=== PATIENT | female | born 1960 | race Caucasian/White ===

== ENCOUNTER 2019-01-08 06:29 | Inpatient (IN) | payer MEDICARE, MEDICAID ==
[2019-01-08] MEDS ORDERED: Acetaminophen 500 MG Tab PO ONE (06:45)
[2019-01-08] MEDS ORDERED: Scopolamine 1.5 MG Transdermal Patch TOP ONE (06:45)
[2019-01-08] MEDS ORDERED: Dextrose 5%-Lactated Ringers 1,000 ML IV SCH (07:00)
[2019-01-08] MEDS ORDERED: fentaNYL 250 MCG/5 ML SDV ONE (07:04)
[2019-01-08] MEDS ORDERED: Glycopyrrolate 0.2 MG/ML 5 ML MDV ONE (07:05)
[2019-01-08] MEDS ORDERED: Rocuronium 50 MG/5 ML Vial ONE (07:05)
[2019-01-08] MEDS ORDERED: Ondansetron 4 MG/2 ML SDV ONE (07:05)
[2019-01-08] MEDS ORDERED: Dexamethasone 4 MG/ML SDV ONE (07:05)
[2019-01-08] MEDS ORDERED: Succinylcholine 200 MG/10 ML MDV ONE (07:05)
[2019-01-08] MEDS ORDERED: Neostigmine Methylsulfate 1 MG/ML 5 ML Syringe ONE (07:05)
[2019-01-08] MEDS ORDERED: Propofol 200 MG/20 ML SDV ONE (07:05)
[2019-01-08] MEDS ORDERED: HYDROmorphone/Normal Saline 15 MG/30 ML PCA IV SCH (07:45)
[2019-01-08] MEDS ORDERED: Ketamine 50 MG in Sodium Chloride 0.9% 49.5 ML IV SCH (08:30)
[2019-01-08] MEDS ORDERED: Ketamine 500 MG/5 ML MDV IV SCH (08:30)
[2019-01-08] MEDS ORDERED: Bupivacaine 0.5%/EPINEPHrine 1:200,000 50 ML MDV ONE (09:46)
[2019-01-08] MEDS ORDERED: Meropenem 500 MG SDV ONE (09:46)
[2019-01-08] MEDS: cefOXitin 2 GM in Sodium Chloride 0.9% 50 ML IV ONE ×2 (10:03→13:42)
[2019-01-08] MEDS ORDERED: Lactated Ringers 1,000 ML ONE (10:17)
[2019-01-08] MEDS ORDERED: hydrOXYzine HCl 100 MG/2 ML SDV IM ONE (11:14)
[2019-01-08] MEDS ORDERED: fentaNYL 100 MCG/2 ML SDV IVPUSH ONE ×2 (11:18→11:44)
[2019-01-08] MEDS ORDERED: Insulin Lispro 100 Unit/ML 3 ML KwikPen SUBCUT ONE (11:30)
[2019-01-08] MEDS ORDERED: HYDROmorphone/Normal Saline 15 MG/30 ML PCA IV PRN (12:30)
[2019-01-08] MEDS ORDERED: Naloxone 0.4 MG/ML SDV IV PRN (12:41)
[2019-01-08] MEDS ORDERED: diphenhydrAMINE 50 MG/ML SDV IVPUSH PRN (12:46)
[2019-01-08] MEDS ORDERED: Labetalol 20 MG/4 ML Syringe IVPUSH PRN (12:46)
[2019-01-08] MEDS ORDERED: Ondansetron 4 MG/2 ML SDV IVPUSH PRN (12:46)
[2019-01-08] MEDS ORDERED: hydrOXYzine HCl 100 MG/2 ML SDV IM PRN (12:46)
[2019-01-08] MEDS ORDERED: Metoclopramide 10 MG/2 ML SDV IVPUSH PRN (12:46)
[2019-01-08] MEDS: Dextrose 5%-Lactated Ringers 1,000 ML IV SCH (13:39)
[2019-01-08] MEDS: Lactated Ringers 1,000 ML IV SCH ×2 (13:40→20:27)
[2019-01-08] MEDS: MVI, Adult with Vitamin K 10 ML, Thiamine 200 MG, Chromium/Copper/Mang/Selen/Zn 1 ML in... IV SCH ×4 (15:53)
[2019-01-08] MEDS: cefOXitin 2 GM in Sodium Chloride 0.9% 50 ML IV SCH ×2 (15:54→22:02)
[2019-01-08] MEDS: Pantoprazole 40 MG Vial IVPUSH SCH (15:59)
[2019-01-08] MEDS: Acetaminophen 325 MG Tab PO SCH ×2 (15:59→22:02)
[2019-01-08] MEDS: Insulin Lispro 100 Unit/ML 3 ML KwikPen SUBCUT PRN ×2 (16:47→21:59)
[2019-01-08] MEDS: metFORMIN 500 MG Tab PO SCH ×2 (16:48→17:00)
[2019-01-08] MEDS: HYDROmorphone 0.5 MG/0.5 ML Syringe IVPUSH PRN (16:49)
[2019-01-08] MEDS: Heparin Sodium 5,000 Units/ML Vial SUBCUT SCH (17:00)
[2019-01-08] MEDS: HYDROmorphone 1 MG/ML Syringe IV PRN (19:29)
[2019-01-09] MEDS: HYDROmorphone 1 MG/ML Syringe IV PRN (03:00)
[2019-01-09] MEDS ORDERED: Iopamidol 510 MG/ML 50 ML SDV PO SCH (03:45)
[2019-01-09] MEDS: Acetaminophen 325 MG Tab PO SCH ×4 (03:46→22:07)
[2019-01-09] MEDS: cefOXitin 2 GM in Sodium Chloride 0.9% 50 ML IV SCH ×4 (03:46→22:07)
[2019-01-09] MEDS ORDERED: Iopamidol 612 MG/ML 50 ML SDV IV STA (04:17)
[2019-01-09] MEDS: Dextrose 5%-Lactated Ringers 1,000 ML IV SCH (04:50)
[2019-01-09] MEDS: Heparin Sodium 5,000 Units/ML Vial SUBCUT SCH ×2 (05:27→17:05)
[2019-01-09] MEDS: HYDROmorphone 0.5 MG/0.5 ML Syringe IVPUSH PRN (07:51)
[2019-01-09] MEDS: Lactated Ringers 1,000 ML IV SCH (07:57)
[2019-01-09] MEDS: metFORMIN 500 MG Tab PO SCH ×2 (07:57→17:05)
[2019-01-09] MEDS: SCOPOLAMINE PATCH CHECK TOP SCH (07:59)
[2019-01-09] MEDS ORDERED: Ondansetron 4 MG Tab.DIS PO PRN (08:04)
[2019-01-09] MEDS ORDERED: Non-Formulary Medication 1 Each (Trazodone [Trazodone] 150 MG) PO PRN (08:07)
[2019-01-09] MEDS ORDERED: traZODone 50 MG Tab PO PRN (08:32)
[2019-01-09] MEDS ORDERED: VALACYCLOVIR HCL 500 MG PO SCH (09:00)
[2019-01-09] MEDS ORDERED: Non-Formulary Medication 1 Each (Spironolactone [Aldactone] 50 MG) PO SCH (09:00)
--- NOTE | 2019-01-09 09:18 | CRLCR ---
INDICATION: Evaluate gastric bypass. Small bowel obstruction. TECHNIQUE: Two images were acquired following oral administration of 50 cc of Isovue-300 contrast agent. Images were obtained at 1 and 15 minutes. FINDINGS: The initial image demonstrates contrast opacification within a normal size distal esophagus and there is contrast filling the gastric pouch with free flow across a gastroenterostomy with partial filling of a loop of jejunum. The 2nd image shows near complete evacuation of contrast from the gastric pouch with contrast extending through the efferent limb opacifying a loop of small bowel within the left abdomen. The bowel loop appears of normal size. IMPRESSION: Normal appearance of the gastric pouch and Heidy EN Y gastroenterostomy. No evidence of contrast extravasation which would indicate a leak and no evidence of obstruction. Dictated by Christian Gonzales MD @ 01/09/2019 9:16:38 AM Dictated by: Christian Gonzales MD @ 01/09/2019 09:16:44 (Electronically Signed)
[2019-01-09] MEDS: Spironolactone 25 MG Tab PO SCH (09:19)
[2019-01-09] MEDS: Aspirin 81 MG Tab.EC PO SCH (09:20)
[2019-01-09] MEDS: Allopurinol 100 MG Tab PO SCH (09:20)
--- NOTE | 2019-01-09 09:25 | PN ---
DATE OF SERVICE: 01/09/2019 SUBJECTIVE: Florinda is postoperative day #1. Her upper GI was normal. Bautista was discontinued earlier this morning. She has not voided yet. She is alert, orientated. Pain has been controlled and she has been up, ambulating. OBJECTIVE: GENERAL: Florinda Valderrama is a 58-year-old female, alert, orientated. VITAL SIGNS: TPR 97.7, 59, 16, blood pressure 127/60. HEENT: Negative. NECK: Supple. HEART: Regular rate and rhythm. LUNGS: Clear. ABDOMEN: Dressings dry and intact. Abdominal binder is on. EXTREMITIES: Without peripheral edema. ASSESSMENT: Exploratory laparotomy with small bowel revision and closure of internal hernia, revision of the jejunojejunostomy component of the Heidy-en-Y gastric bypass surgery, excision of peritoneal nodule, appendectomy, and placement of Interceed mesh. Date of surgery: 01/08/2019. Surgeon: Du Portillo MD. PLAN: 1. Step 3 gastric bypass diet. 2. Dilaudid 2 to 4 mg p.o. p.r.n. pain. 3. Zofran ODT 4 mg every 4 hours p.r.n. nausea. 4. Continue with IV of lactated Ringer's at 100 mL per hour. 5. Discontinue D5 LR. 6. Start home medications; Zyloprim 100 mg daily, aspirin 81 mg daily, trazodone 150 mg p.o. bedtime p.r.n., Aldactone/spironolactone 50 mg p.o. daily, valtrex 500 mg p.o. daily. 7. Blood sugar this morning was 173. We will hold metformin. 8. Good pulmonary toilet. 9. We will evaluate p.r.n. or in a.m. Liberty Lara PA-C /[id number]
[2019-01-09] MEDS: valACYclovir 1,000 MG Tab PO SCH (10:52)
[2019-01-09] MEDS: HYDROmorphone 2 MG Tab PO PRN ×3 (10:52→20:28)
[2019-01-09] MEDS: MVI, Adult with Vitamin K 10 ML, Thiamine 200 MG, Chromium/Copper/Mang/Selen/Zn 1 ML in... IV SCH ×4 (16:24)
[2019-01-09] MEDS: Pantoprazole 40 MG Vial IVPUSH SCH (16:29)
[2019-01-10] MEDS: HYDROmorphone 2 MG Tab PO PRN ×5 (01:46→18:26)
[2019-01-10] MEDS: cefOXitin 2 GM in Sodium Chloride 0.9% 50 ML IV SCH ×4 (04:23→21:23)
[2019-01-10] MEDS: Acetaminophen 325 MG Tab PO SCH ×4 (04:23→21:18)
[2019-01-10] MEDS: Heparin Sodium 5,000 Units/ML Vial SUBCUT SCH ×2 (06:05→18:21)
[2019-01-10] MEDS: SCOPOLAMINE PATCH CHECK TOP SCH (08:23)
[2019-01-10] MEDS ORDERED: Cyanocobalamin (Vitamin B12) 1,000 MCG/ML SDV IM ONE (09:00)
[2019-01-10] MEDS: Bisacodyl 5 MG Tab PO SCH ×2 (10:01→21:18)
[2019-01-10] MEDS: Aspirin 81 MG Tab.EC PO SCH (10:02)
[2019-01-10] MEDS: metFORMIN 500 MG Tab PO SCH ×2 (10:02→18:21)
[2019-01-10] MEDS: valACYclovir 1,000 MG Tab PO SCH (10:02)
[2019-01-10] MEDS: Spironolactone 25 MG Tab PO SCH (10:03)
[2019-01-10] MEDS: Allopurinol 100 MG Tab PO SCH (10:03)
[2019-01-10] MEDS: Lactated Ringers 1,000 ML IV SCH (10:12)
[2019-01-10] MEDS: MVI, Adult with Vitamin K 10 ML, Thiamine 200 MG, Chromium/Copper/Mang/Selen/Zn 1 ML in... IV SCH ×4 (16:09)
[2019-01-10] MEDS: Pantoprazole 40 MG Vial IVPUSH SCH (16:10)
[2019-01-11] MEDS: HYDROmorphone 2 MG Tab PO PRN ×4 (02:55→20:57)
[2019-01-11] MEDS: cefOXitin 2 GM in Sodium Chloride 0.9% 50 ML IV SCH ×3 (03:35→16:20)
[2019-01-11] MEDS: Acetaminophen 325 MG Tab PO SCH ×4 (03:35→21:05)
[2019-01-11] MEDS: Heparin Sodium 5,000 Units/ML Vial SUBCUT SCH ×2 (05:25→18:11)
[2019-01-11] MEDS: Lactated Ringers 1,000 ML IV SCH (06:26)
[2019-01-11] MEDS: Polyethylene Glycol 3350 Powder 119 GM Bottle PO SCH ×2 (09:19→21:47)
[2019-01-11] MEDS: Spironolactone 25 MG Tab PO SCH (09:19)
[2019-01-11] MEDS: metFORMIN 500 MG Tab PO SCH ×2 (09:19→16:18)
[2019-01-11] MEDS: Allopurinol 100 MG Tab PO SCH (09:20)
[2019-01-11] MEDS: valACYclovir 1,000 MG Tab PO SCH (09:20)
[2019-01-11] MEDS: Bisacodyl 5 MG Tab PO SCH ×2 (09:20→20:58)
[2019-01-11] MEDS: Aspirin 81 MG Tab.EC PO SCH (09:21)
[2019-01-11] MEDS: Pantoprazole 40 MG Vial IVPUSH SCH (16:17)
[2019-01-11] MEDS ORDERED: Polyethylene Glycol 3350 Powder 238 GM Bot ONE (21:12)
[2019-01-12] MEDS: HYDROmorphone 2 MG Tab PO PRN ×2 (01:51→07:20)
[2019-01-12] MEDS: Acetaminophen 325 MG Tab PO SCH ×2 (03:36→09:18)
[2019-01-12] MEDS: Heparin Sodium 5,000 Units/ML Vial SUBCUT SCH (05:53)
[2019-01-12] MEDS: metFORMIN 500 MG Tab PO SCH (07:20)
--- NOTE | 2019-01-12 07:43 | PN ---
DATE OF SERVICE: 01/10/2019 The patient has been afebrile with stable vital signs. She has been slow in terms of oral intake and activity. We will try to work on that today. Discontinue the and give her some bowel stimulation. Blood sugars have been running in the low 100's, so I think we can discontinue the Accu-Cheks and possibly go home tomorrow if her bowels are moving. Du Portillo MD /[id number]
--- NOTE | 2019-01-12 09:02 | PN ---
DATE OF SERVICE: 01/11/2019 The patient has been afebrile with stable vital signs. No bowel movement as of yet and will keep her in to try to get the GI tract functioning before discharge. We gave her some MiraLax today, have her shower, saline lock the IV, probably will get home tomorrow. Du Portillo MD /[id number]
[2019-01-12] MEDS: Aspirin 81 MG Tab.EC PO SCH (09:15)
[2019-01-12] MEDS: Bisacodyl 5 MG Tab PO SCH (09:15)
[2019-01-12] MEDS: Spironolactone 25 MG Tab PO SCH (09:16)
[2019-01-12] MEDS: Allopurinol 100 MG Tab PO SCH (09:18)
[2019-01-12] MEDS: valACYclovir 1,000 MG Tab PO SCH (09:18)
--- NOTE | 2019-01-12 09:38 | DISCH ---
ADMISSION DIAGNOSES: 1. Partial small bowel obstruction. 2. Diabetes, type 2. 3. Status post Heidy-en-Y gastric bypass surgery. 4. Unspecified surgical malabsorption. 5. B12 deficiency. 6. Attention deficit hyperactivity disorder. 7. Allergic rhinitis. 8. Anxiety disorder. 9. Borderline personality. 10.Diabetic neuropathy. 11.Elevated liver function tests. 12.Generalized osteoarthritis. 13.Human papillomavirus in female. 14.Insomnia. 15.Iron deficiency anemia. 16.Leukoplakia. 17.Low back pain. 18.Seasonal affective disorder. DISCHARGE DIAGNOSES: Exploratory laparotomy with small bowel revision and closure of internal hernia, revision of the jejunojejunostomy component of the Heidy-en-Y gastric bypass surgery, excision of peritoneal nodule, appendectomy, and placement of Interceed mesh. Date of surgery: 01/08/2019. Surgeon: Du Portillo MD. HISTORY: Florinda Valderrama is a pleasant 58-year-old female with postprandial abdominal pain with increasing symptoms. After preoperative evaluation and discussion of possible risks and possible complications, she wished to proceed with surgical procedure. HOSPITAL COURSE: Surgery was on 01/08/2019. She had no operative complications. On postoperative day #1, she was started on step 3 gastric bypass diet, oral pain medication, and her home medication. Blood sugars were monitored. On postoperative day #2, she was started on bowel stimulation. Activity was good. Vital signs were stable. On postoperative day #3, she was able to be discharged to home without any complications. PHYSICAL EXAMINATION: GENERAL: Florinda Valderrama is a 58-year-old female. VITAL SIGNS: Height is 5 feet 3.39 inches, weight is 186 pounds. TPR is 98, 81, 16, blood pressure 107/57. HEENT: Negative. NECK: Supple. HEART: Regular rate and rhythm. LUNGS: Clear. ABDOMEN: Aquacel dressing will be removed prior to discharge. Abdominal binder is on. EXTREMITIES: Without peripheral edema. DISPOSITION: Discharged to home. CONDITION: Stable and improving. FOLLOWUP APPOINTMENT: Liberty Lara PA-C, on 01/16/2019 at 9:30 a.m. NEW PRESCRIPTIONS: Dilaudid 2 mg one q.6 hours p.r.n. pain #28; Tylenol 650 mg q.6 hours p.r.n. pain. She is to resume home medications; zyloprim 100 mg oral daily, aspirin 81 mg oral daily, calcium citrate one b.i.d., vitamin D3 5000 International Units one b.i.d., B12 1000 mcg IM every 14 days, ferrous fumarate 324 mg oral 3 times a day, Mag-Oxide 400 mg oral daily, multivitamin one tablet oral daily, spironolactone 50 mg oral daily, vitamin B complex one daily, metformin 500 mg oral twice daily, trazodone 150 mg at bedtime, Valtrex 500 mg oral daily. DIET: Step 3 gastric bypass diet. Drink 8 to 10 glasses of water a day. Activity: No lifting over 10 pounds for 6 weeks. Walk at least 6 times daily inside your home. Driving: Do not drive for 1 week and while on pain medication. Shower/bathing: May shower. DISCHARGE INSTRUCTIONS: Notify provider if any fever, increased pain, nausea, or vomiting. Keep site clean and dry. Wear abdominal binder for 4 weeks and as tolerated. Use incentive spirometer 10 times every hour while awake. Check blood sugars twice a day and bring results to clinic appointment.
--- NOTE | 2019-01-26 08:50 | OR ---
DATE OF PROCEDURE: 01/08/2019 SURGEON: Du Portillo MD PREOPERATIVE DIAGNOSIS: Partial small bowel obstruction. POSTOPERATIVE DIAGNOSES: 1. Partial small bowel obstruction associated with focal small bowel volvulus and decompensation of jejunojejunostomy. 2. Peritoneal nodule on small bowel mesentery. 3. Multiple peritoneal nodules on appendix. 4. Extensive intraabdominal adhesions. OPERATIVE PROCEDURE: Exploratory laparotomy with: 1. Reduction of small bowel volvulus and closure of internal hernia (08733). 2. Revision of jejunojejunostomy component of Heidy-en-Y gastric bypass (18795). 3. Excision of peritoneal nodule on small bowel mesentery (01715). 4. Appendectomy for the purpose of removing adherent peritoneal nodules overlying appendix (44104). 5. Placement of Interceed mesh to limit recurrent adhesion between pelvic and abdominal wall and underlying viscera (45471). ANESTHESIA: General. SENIOR INSIGHT MANAGER [employer]ATIONAL: Liberty Lara PA-C INDICATIONS FOR PROCEDURE: This is a 58-year-old pleasant lady, who is status post Heidy-en- Y gastric bypass, presenting with a picture of small-bowel obstruction. Plan is to proceed with open laparotomy with lysis of adhesions, possible bowel resection, and other procedures as indicated. Potential risks including bleeding, infection, leaks from various GI tract closures, and problems with bowel obstruction over time recurring were all reviewed, and the patient wishes to proceed. DETAILS OF PROCEDURE: The patient was taken to the operating room, and after general endotracheal anesthesia was induced, a Bautista catheter was inserted and the abdomen prepped and draped. Upper midline incision from the umbilicus roughly 5 fingerbreadths up toward the xiphoid was made and carried down through the full-thickness of the abdominal wall. Upon entering the peritoneal cavity, the patient was noted to have quite extensive adhesions between the omentum, small bowel, and anterior abdominal wall. These were taken down with combination of blunt and cautery dissection. At that point, the small bowel was examined. The patient was noted to have focal volvulus with a portion of the jejunojejunostomy prolapsing underneath its own mesenteric defect. As this was reduced, it was noted that the jejunojejunostomy was strikingly dilated and quite decompensated in appearance. Given this, after reduction of the volvulus, it was decided to proceed with revision of that jejunojejunostomy. The 3 components leading into that anastomosis were then divided flush with the anastomosis with JAIME braden and underlying mesentery divided with the JAIME stapler as well. The GI tract continuity was then reestablished with initial anastomosis between what had been the distal-most biliopancreatic limb to the proximal-most common limb. This was a [id number] enteroenterostomy with internal firing of the Endo-JAIME 60 mm stapler, common opening was then closed transversely with same stapler, and angles of anastomosis were reinforced with 3-0 Vicryl stitch, and the mesenteric defect reinforced with a 2-0 silk stitch. The GI tract continuity was then reestablished with formation of the jejunojejunostomy between what had been the distal-most Heidy limb to the small bowel roughly 20 cm distal to the first anastomosis. This was accomplished with the same sequence of braden, and the angles anastomosed and mesenteric defect was likewise closed as per the first anastomosis. At this point, no further problems were noted apart from there were areas of 1 or 2 mm peritoneal nodules present. One of these was in the mesentery of the mid ileum. This was excised. The appendix was noted to have multiple similar small nodules of uncertain nature. Given this, appendectomy was accomplished with division of the appendix flush with the cecum with a JAIME henriquez load and the mesentery then divided with mesenteric load. The appendiceal staple line was then reinforced with [id number] stitch of 3-0 Vicryl seromuscular stitch. At that point, the abdomen was irrigated with antibiotic-containing saline solution. Drains will not be necessary. To limit recurrent adhesion formation between the pelvis and the abdominal wall, Interceed mesh was placed down toward the pelvis and then up against the incision, and then this incision was closed with #2 Vicryl stitch at the fascia level, 2 layers of 3-0 and 4-0 Vicryl stitch deep, and braden for the skin. Dressing was applied. The patient was taken to the recovery room in satisfactory condition. There were no evident complications. Physician event sales assistant, Liberty Lara, played an essential role in assisting in this case, helping to position the patient, retract structures as needed, as well as suturing and cutting sutures when indicated. Her presence improved patient safety and decreased the operative time. Du Portillo MD /[id number]
== END 2019-01-12 09:59 | disposition home or self-care (01) | DRG 327 ==
LOC: JP.SDS 06:29 → EDSTATUS 11:00 → JP.SDSSCHI 11:10 → JP.MS 11:11
PROVIDERS: ADMIT Surgery; ATTEND Surgery
PROC: 0WUF0JZ Supplement Abdominal Wall with Synthetic Substitute, Open Approach (ICD-10-PCS; principal; 2019-01-08)
PROC: 0D160ZA Bypass Stomach to Jejunum, Open Approach (ICD-10-PCS; principal; 2019-01-08)
PROC: 0DTJ0ZZ Resection of Appendix, Open Approach (ICD-10-PCS; principal; 2019-01-08)
PROC: 0DN80ZZ Release Small Intestine, Open Approach (ICD-10-PCS; principal; 2019-01-08)
PROC: 0DNW0ZZ Release Peritoneum, Open Approach (ICD-10-PCS; principal; 2019-01-08)
PROC: 0DNU0ZZ Release Omentum, Open Approach (ICD-10-PCS; principal; 2019-01-08)
DX: K56.600 Partial intestinal obstruction, unspecified as to cause (principal); K91.2 Postsurgical malabsorption, not elsewhere classified; F33.8 Other recurrent depressive disorders; K46.9 Unspecified abdominal hernia without obstruction or gangrene; I10 Essential (primary) hypertension; K66.8 Other specified disorders of peritoneum; D50.9 Iron deficiency anemia, unspecified; B97.7 Papillomavirus as the cause of diseases classified elsewhere; E53.8 Deficiency of other specified B group vitamins; E11.40 Type 2 diabetes mellitus with diabetic neuropathy, unspecified; M15.9 Polyosteoarthritis, unspecified; F41.9 Anxiety disorder, unspecified; F60.3 Borderline personality disorder; M54.12 Radiculopathy, cervical region; J30.9 Allergic rhinitis, unspecified; F90.0 Attention-deficit hyperactivity disorder, predominantly inattentive type; R79.89 Other specified abnormal findings of blood chemistry; G47.00 Insomnia, unspecified; K13.21 Leukoplakia of oral mucosa, including tongue; M54.5 Low back pain; G47.33 Obstructive sleep apnea (adult) (pediatric); F39 Unspecified mood [affective] disorder; K56.2 Volvulus; K66.9 Disorder of peritoneum, unspecified; K56.51 Intestinal adhesions [bands], with partial obstruction; Z98.0 Intestinal bypass and anastomosis status; Z87.891 Personal history of nicotine dependence; Z98.84 Bariatric surgery status
CPT/HCPCS: 74240; 82962; 88304; 88305; 88307; 94762; A9270-GY; C9113; J0171; J0330; J0694; J1100; J1170; J1644; J1815; J2185; J2405; J2704; J2710; J2795; J3010; J3410; J3411; J3420; J3490; J7042; J7050; J7120; Q9967

== ENCOUNTER 2020-01-18 10:38 | Inpatient (IN) | payer MEDICARE, MEDICAID ==
[~2020-01-18 10:38] MED LIST: Bupivacaine 0.5%/EPINEPHrine 1:200,000 50 ML MDV ONE; Dexamethasone 4 MG/ML SDV ONE; Glycopyrrolate 0.2 MG/ML 5 ML MDV ONE; Meropenem 500 MG SDV ONE; Neostigmine Methylsulfate 1 MG/ML 5 ML Syringe ONE; Ondansetron 4 MG/2 ML SDV ONE; Propofol 200 MG/20 ML SDV ONE; Rocuronium 50 MG/5 ML Vial ONE; fentaNYL 250 MCG/5 ML SDV ONE
[2020-01-18] MEDS ORDERED: Acetaminophen 500 MG Tab PO ONE (11:30)
[2020-01-18] MEDS ORDERED: Celecoxib 200 MG Cap PO ONE ×2 (11:30)
[2020-01-18] MEDS ORDERED: Dextrose 5%-Lactated Ringers 1,000 ML IV SCH ×2 (12:00→15:30)
[2020-01-18] MEDS ORDERED: fentaNYL 250 MCG/5 ML SDV ONE (12:13)
[2020-01-18] MEDS: ceFAZolin 2 GM in Premix Bag 1 BAG IV ONE ×2 (12:19→14:56)
[2020-01-18] MEDS ORDERED: Ropivacaine 38 ML, dexAMETHasone 8 MG, EPINEPHrine 0.4 MG, Sodium Chloride 0.9% 39.6 ML NERVRT SCH ×4 (12:30)
[2020-01-18] MEDS ORDERED: Ketamine 50 MG in Sodium Chloride 0.9% 49.5 ML IV SCH (12:45)
[2020-01-18] MEDS ORDERED: Ketamine 500 MG/5 ML MDV IV SCH (12:45)
[2020-01-18] MEDS ORDERED: Bupivacaine 0.5% 50 ML MDV ONE (12:47)
[2020-01-18] MEDS ORDERED: Lidocaine 1% with EPINEPHrine 1:100,000 50 ML MDV ONE (12:47)
[2020-01-18] MEDS ORDERED: Ketorolac 60 MG/2 ML SDV ONE (13:04)
[2020-01-18] MEDS ORDERED: Insulin Lispro 100 Unit/ML 3 ML KwikPen SUBCUT ONE (13:46)
[2020-01-18] MEDS ORDERED: Glucagon,Human Recombinant 1 MG Vial IM PRN (15:21)
[2020-01-18] MEDS ORDERED: Glucose Gel 15 GM in 37.5 GM Tube PO PRN (15:21)
[2020-01-18] MEDS ORDERED: 50% Dextrose in Water 50 ML Syringe IVPUSH PRN (15:21)
[2020-01-18] MEDS ORDERED: hydrOXYzine HCL 100 MG/2 ML SDV IM PRN (15:27)
[2020-01-18] MEDS ORDERED: Ondansetron 4 MG/2 ML SDV IVPUSH PRN (15:28)
[2020-01-18] MEDS ORDERED: HYDROmorphone 1 MG/ML Syringe IV PRN (16:00)
[2020-01-18] MEDS: HYDROmorphone 0.5 MG/0.5 ML Syringe IVPUSH PRN ×3 (16:10→23:47)
[2020-01-18] MEDS: Insulin Lispro 100 Unit/ML 3 ML KwikPen SUBCUT PRN ×2 (17:15→21:25)
[2020-01-18] MEDS: metFORMIN 500 MG Tab PO SCH (17:16)
[2020-01-18] MEDS: Ziprasidone HCl 20 MG Cap PO SCH (17:19)
[2020-01-18] MEDS: ceFAZolin 2 GM in Premix Bag 1 BAG IV SCH (20:04)
[2020-01-18] MEDS: traZODone 50 MG Tab PO SCH (20:09)
[2020-01-19] MEDS: Lactated Ringers 1,000 ML IV SCH ×3 (00:07→20:53)
[2020-01-19] MEDS: ceFAZolin 2 GM in Premix Bag 1 BAG IV SCH ×2 (04:40→11:56)
[2020-01-19] MEDS: HYDROmorphone 0.5 MG/0.5 ML Syringe IVPUSH PRN ×2 (04:45→05:55)
[2020-01-19] MEDS: Cyclobenzaprine 10 MG Tab PO PRN ×3 (05:55→22:44)
[2020-01-19] MEDS ORDERED: Ondansetron 4 MG Tab.DIS PO PRN (07:09)
[2020-01-19] MEDS: HYDROmorphone 2 MG Tab PO PRN ×4 (07:49→20:53)
[2020-01-19] MEDS: Amphetamine/Dextroamphetamine Salts 10 MG Tab PO SCH ×2 (07:49→12:40)
[2020-01-19] MEDS: Ziprasidone HCl 20 MG Cap PO SCH ×2 (07:53→17:02)
[2020-01-19] MEDS: metFORMIN 500 MG Tab PO SCH ×2 (07:54→17:01)
[2020-01-19] MEDS: Bisacodyl 5 MG Tab PO SCH ×2 (10:22→20:53)
[2020-01-19] MEDS: Spironolactone 25 MG Tab PO SCH (10:23)
[2020-01-19] MEDS: Docusate Sodium 100 MG Cap PO SCH ×2 (10:23→20:53)
[2020-01-19] MEDS: valACYclovir 1,000 MG Tab PO SCH (10:23)
[2020-01-19] MEDS: buPROPion 150 MG Tab.ER PO SCH (10:24)
[2020-01-19] MEDS: Aspirin 81 MG Tab.EC PO SCH (10:25)
[2020-01-19] MEDS: Allopurinol 100 MG Tab PO SCH (10:25)
[2020-01-19] MEDS: Insulin Lispro 100 Unit/ML 3 ML KwikPen SUBCUT PRN ×2 (10:29→21:32)
--- NOTE | 2020-01-19 11:18 | PN ---
DATE OF SERVICE: 01/19/2020 SUBJECTIVE: Florinda is postoperative day #1. She states her pain is controlled until she moves. Dr. Portillo explained to her that the surgery will be more painful than the surgery she has had in the past. She has been up, ambulating a couple of times. Vital signs stable. She has been afebrile. Oral intake 926. Urine output was 990. REVIEW OF SYSTEMS: Remainder of review of systems negative for any pertinent positives and negatives. OBJECTIVE: GENERAL: Florinda Valderrama is a pleasant 59-year-old female. She is alert and orientated. VITAL SIGNS: TPR at 0736, 96.6; 58; 16; blood pressure 106/55. HEENT: Negative. NECK: Supple. HEART: Regular rate and rhythm. LUNGS: Clear. ABDOMEN: Dressings dry and intact. Abdominal binder is on. EXTREMITIES: Without peripheral edema. ASSESSMENT: Exploratory laparotomy with: 1. Repair of incarcerated incisional hernia with mesh. 2. Excision of nodular lesion. 3. Reduction of small bowel volvulus and closure of internal hernia. 4. Placement of Vicryl mesh. POSTOPERATIVE DIAGNOSES: 1. Incarcerated incisional hernia. 2. Nodular peritoneal implant on appendix epiploica, transverse colon, 6 cm. 3. Focal small bowel volvulus at the jejunojejunostomy. 4. Extensive intraabdominal adhesions. 5. Date of surgery: 01/18/2020. Surgeon: Du Portillo MD. PLAN: 1. Step 4 gastric bypass diet. 2. Dietary consult. 3. Dilaudid 2 mg 1 to 2 every 4 hours p.r.n. pain. 4. Decrease IV to 100 mL per hour. 5. Colace 100 mg p.o. b.i.d. 6. Dulcolax 10 mg p.o. tablets 1 b.i.d. scheduled. Discontinue when the patient has a bowel movement. 7. May shower. 8. Zofran ODT 4 mg every 4 hours p.r.n. nausea, vomiting. 9. Discontinue D5 LR at 50 mL per hour. 10.Discontinue continuous pulse ox. 11.Continue use of incentive spirometer as directed. 12.We will evaluate p.r.n. or in a.m. Liberty Lara PA-C /[id number]
[2020-01-19] MEDS: traZODone 50 MG Tab PO SCH (20:56)
[2020-01-20] MEDS: HYDROmorphone 2 MG Tab PO PRN ×2 (00:47→00:53)
[2020-01-20] MEDS: Lactated Ringers 1,000 ML IV SCH ×2 (06:00→16:00)
[2020-01-20] MEDS ORDERED: Cyclobenzaprine 10 MG Tab PO PRN (07:00)
[2020-01-20] MEDS ORDERED: hydrOXYzine HCl 25 MG Tab PO PRN (07:00)
[2020-01-20] MEDS: Acetaminophen/oxyCODONE 325-5 MG Tab PO PRN ×4 (07:51→22:50)
[2020-01-20] MEDS: Amphetamine/Dextroamphetamine Salts 10 MG Tab PO SCH ×2 (08:25→13:28)
[2020-01-20] MEDS: metFORMIN 500 MG Tab PO SCH ×2 (08:26→17:38)
[2020-01-20] MEDS: Celecoxib 200 MG Cap PO SCH ×2 (08:30→21:43)
[2020-01-20] MEDS: Spironolactone 25 MG Tab PO SCH (08:30)
[2020-01-20] MEDS: Ziprasidone HCl 20 MG Cap PO SCH ×2 (08:30→17:38)
[2020-01-20] MEDS: valACYclovir 1,000 MG Tab PO SCH (08:31)
[2020-01-20] MEDS: Bisacodyl 5 MG Tab PO SCH ×2 (08:31→21:00)
[2020-01-20] MEDS: Docusate Sodium 100 MG Cap PO SCH ×2 (08:31→21:44)
[2020-01-20] MEDS: Aspirin 81 MG Tab.EC PO SCH (08:31)
[2020-01-20] MEDS: Allopurinol 100 MG Tab PO SCH (08:31)
[2020-01-20] MEDS: buPROPion 150 MG Tab.ER PO SCH (08:32)
--- NOTE | 2020-01-20 09:29 | PN ---
DATE OF SERVICE: 01/20/2020 SUBJECTIVE: Florinda reports her pain is just not controlled. She is taking Dilaudid 2 mg every 4 hours. If she takes 4 mg, she states she cannot stay awake. Vital signs have been stable. She has been afebrile, up ambulating. Oral intake is 1520, urine output is 2375. She is on bowel stimulation and is not passing any flatus. Blood sugars, the last 3, have been 177, 128, and 164. REVIEW OF SYSTEMS: Remainder of review of systems negative for any pertinent positives and negatives. OBJECTIVE: GENERAL: Florinda Valderrama is a pleasant 59-year-old female. VITAL SIGNS: TPR at 0348, 96.3, 67, 16, blood pressure 139/59. HEENT: Negative. NECK: Supple. HEART: Regular rate and rhythm. LUNGS: Clear. ABDOMEN: Dressings dry and intact. Abdominal binder is on. EXTREMITIES: Without peripheral edema. ASSESSMENT: Exploratory laparotomy with: 1. Repair of incarcerated incisional hernia with mesh. 2. Excision of nodular lesion. 3. Reduction of small bowel volvulus and closure of internal hernia. 4. Placement of Vicryl mesh. POSTOPERATIVE DIAGNOSES: 1. Incarcerated incisional hernia. 2. Nodular peritoneal implant on appendix epiploica, transverse colon 6 cm. 3. Focal small bowel volvulus of the jejunojejunostomy. 4. Extensive intraabdominal adhesions. Date of surgery: 01/18/2020. Surgeon: Du Portillo MD. PLAN: 1. Discontinue Dilaudid. 2. Percocet 5/325 mg, 1 to 2 every 4 hours p.r.n. pain. 3. Celebrex 200 mg p.o. b.i.d. 4. Atarax 25 mg p.o. q.4 hours p.r.n. pain. 5. Flexeril 10 mg increase to every 6 hours p.r.n. muscle spasms. 6. Continue use of incentive spirometer. 7. We will evaluate in a.m., and [facility] have been contacted. Liberty Lara PA-C /[id number]
[2020-01-20] MEDS: traZODone 50 MG Tab PO SCH (21:45)
[2020-01-21] MEDS: Lactated Ringers 1,000 ML IV SCH (02:03)
[2020-01-21] MEDS: Acetaminophen/oxyCODONE 325-5 MG Tab PO PRN ×2 (05:45→08:10)
[2020-01-21] MEDS: Ziprasidone HCl 20 MG Cap PO SCH (09:12)
[2020-01-21] MEDS: Allopurinol 100 MG Tab PO SCH (09:12)
[2020-01-21] MEDS: Aspirin 81 MG Tab.EC PO SCH (09:12)
[2020-01-21] MEDS: Bisacodyl 5 MG Tab PO SCH (09:12)
[2020-01-21] MEDS: Amphetamine/Dextroamphetamine Salts 10 MG Tab PO SCH (09:12)
[2020-01-21] MEDS: valACYclovir 1,000 MG Tab PO SCH (09:12)
[2020-01-21] MEDS: Celecoxib 200 MG Cap PO SCH (09:13)
[2020-01-21] MEDS: metFORMIN 500 MG Tab PO SCH (09:13)
[2020-01-21] MEDS: Spironolactone 25 MG Tab PO SCH (09:13)
[2020-01-21] MEDS: buPROPion 150 MG Tab.ER PO SCH (09:14)
[2020-01-21] MEDS: Docusate Sodium 100 MG Cap PO SCH (09:14)
--- NOTE | 2020-01-21 13:28 | DISCH ---
ADMISSION DIAGNOSES: 1. Incisional hernia. 2. Unspecified surgical malabsorption. 3. SP Heidy-en-Y gastric bypass surgery. 4. B12 deficiency. 5. Vitamin B complex deficiency. 6. Vitamin D deficiency. 7. Type 2 diabetes without complication without long-term current use of insulin. 8. Depression with anxiety. 9. Exploratory laparotomy with: a. Repair of incarcerated incisional hernia with mesh. b. Excision of a nodular lesion. c. Reduction of small bowel volvulus and closure of internal hernia. d. Placement of Vicryl mesh. POSTOPERATIVE DIAGNOSES: 1. Incarcerated incisional hernia. 2. Nodule peritoneal implant on appendix epiploica transverse colon, 6 cm. 3. Focal small bowel volvulus of the jejunojejunostomy. 4. Extensive intraabdominal adhesions. 5. Date of procedure: 01/18/2020. Surgeon: Du Portillo MD. HISTORY: Florinda Valderrama is a 59-year-old female with an incarcerated incisional hernia. After preoperative evaluation and discussion of possible risks and possible complications, she wished to proceed with surgical procedure. HOSPITAL COURSE: Florinda had her surgery on 01/18/2020. She had no operative complications. On postoperative day #1, she was started on step 4 gastric bypass diet, Dilaudid 2 mg 1 to 2 every 4 hours, and bowel stimulation. IV was decreased to 50 mL per hour. On postoperative day #2, her pain was not controlled with the Dilaudid, so she was started on Percocet 5/325 1 to 2 every 4 hours, Celebrex 200 mg p.o. b.i.d., Atarax every 4 hours for additional pain. On postop day #3, she was able to be discharged to home. Afebrile. Vital signs stable. Oral intake 1100. Urine output was 3100. She has not had a bowel movement yet, but is passing flatus. Her last blood sugar was 143. DISPOSITION: Discharged to home with home health care with no complications and in stable condition. OBJECTIVE: GENERAL: Florinda is a 59-year-old female. VITAL SIGNS: Height is 5 feet 3.39 inches, weight is 170 pounds, BMI 29.7. TPR at 0722, 95.8; 90; 16; blood pressure 120/77. HEENT: Negative. NECK: Supple. HEART: Regular rate and rhythm. LUNGS: Clear. ABDOMEN: Aquacel dressings on. Abdominal binder is on with rolled up Kerlix for pressure dressing over hernia site. EXTREMITIES: Without peripheral edema. DISPOSITION: Discharged to home. CONDITION: Stable and improving. FOLLOWUP: Appointment with Liberty Lara PA-C, at [facility] on 01/29/2020 at 9:45 a.m. HOME MEDICATIONS: 1. Celebrex 200 mg oral b.i.d., #28. 2. Colace 100 mg oral b.i.d., #60. 3. Dulcolax 10 mg oral twice daily, #30, to stop when you have a BM. 4. Flexeril 10 mg oral q.6 hours p.r.n. muscle spasms, #30. 5. Milk of magnesia 30 mL, take 1 daily, 2 were sent home with the patient to take p.r.n. constipation. 6. MiraLAX 119 g, take on 01/23/2020, if no bowel movement. 7. Percocet 5/325 mg 1 tablet every 4 hours p.r.n. pain #42. 8. Zofran ODT 4 mg every 4 hours p.r.n. nausea. 9. Resume home medication of: a. Adderall 10 mg oral twice daily. b. Aspirin 81 mg oral daily. c. Vitamin B12 1000 mcg injection every 14 days. d. Magnesium oxide 400 mg daily. e. Multivitamin 1 tablet chewable twice daily. f. Spironolactone 50 mg oral daily. g. Vitamin B complex 1 daily. h. Vitamin E 400 International Units oral daily. i. Zyloprim 100 mg oral daily. j. Bupropion 150 mg oral daily. k. Metformin 500 mg oral twice daily. l. Trazodone 200 mg oral at bedtime. m. Valtrex 500 mg oral daily as directed p.r.n. outbreak of genital herpes. n. Ziprasidone 60 mg oral twice daily with meals. DIET: Step 4 gastric bypass diet. Drink 8 to 10 glasses of water a day. ACTIVITY: No lifting over 10 pounds for 6 weeks. Other activity: Walk at least 6 times daily inside your home. Driving: Do not drive for 1 week or while on pain medication. Shower/bathing: May shower. No tub bathing or swimming for 6 weeks. DISCHARGE INSTRUCTIONS: Notify provider if any fever, pain, swelling, redness, nausea, or vomiting. Keep site clean and dry. Remove Aquacel dressing in 3 days, 01/24/2020. Wear abdominal binder with pressure dressing over hernia site for 6 days. SPECIAL INSTRUCTION: Use incentive spirometer 10 times every hour while awake for 1 week.
--- NOTE | 2020-01-25 11:26 | OR ---
DATE OF PROCEDURE: 01/18/2020 SURGEON: Du Portillo MD PREOPERATIVE DIAGNOSIS: Incisional hernia. POSTOPERATIVE DIAGNOSES: 1. Incarcerated incisional hernia. 2. Nodular peritoneal implant on appendix epiploica in the mid transverse colon (6 cm). 3. Focal small bowel volvulus at jejunojejunostomy mesenteric defect. 4. Extensive intraabdominal adhesions. OPERATIVE PROCEDURES: Exploratory laparotomy with: 1. Repair of incarcerated incisional hernia with mesh (06595, 46756). 2. Excision of peritoneal nodular lesion, appendix epiploica, transverse colon (65151). 3. Reduction of small bowel volvulus, closure of internal hernia (12927). 4. Placement of Vicryl mesh to limit adhesion formation between pelvic and abdominal wall and underlying viscera (18743). ANESTHESIA: General. SIGNAL INTELLIGENCE ANALYST: Liberty Lara PA-C INDICATIONS FOR PROCEDURE: This is a 59-year-old female presenting with an area of herniation in the epigastric area. She is status post previous mesh repair of a periumbilical hernia. Plan is to proceed with open repair of this hernia with mesh. Potential risks of the procedure including bleeding, infection, injury to underlying viscera, problems with mesh becoming infected or hernia recurring were all gone over, and the patient wishes to proceed. DETAILS OF PROCEDURE: The patient was taken to the operating room, and after general endotracheal anesthesia was induced, a Bautista catheter was inserted, and the abdomen prepped and draped. An epigastric incision was then made from the umbilicus up roughly a handsbreadth toward the xiphoid, carried down through the skin and subcutaneous tissue and into the peritoneal cavity. The lowermost point of this incision had an overlap of a previous mesh. The peritoneal cavity was then entered above that area. Some adhesions into the hernia sac, i.e. areas of incarceration involving transverse colon and omentum, were present. These were taken down with a combination of blunt and cautery dissection. During the course of dissection, a nodular lesion on appendix epiploica of the transverse colon was noted. The complex of this nodular lesion on the epiploic appendix was 6 cm in maximal dimension. This was excised using electrocautery. These adhesions were taken down sufficiently to allow mesh placement. Examination of the small bowel was undertaken with the patient having been status post a previous Heidy-en-Y gastric bypass and previous bowel obstructions. The patient did have a focal volvulus involving a loop of small bowel underneath the defect involving the jejunojejunostomy. This was reduced and the mesenteric defect then closed with a 2-0 silk stitch. At this point, no further problems were noted. Ventrio ST mesh measuring 19.6 x 24.6 cm was selected. The patient's broadest defect was in the transverse orientation, so this mesh was eventually placed with long access of the oval in a transverse orientation at roughly 5 cm intervals around its circumference. 2-0 Vicryl sutures were placed on the polypropylene side of the mesh and then stab wounds were placed where those sutures will be pulled up in the abdominal wall, fixing the mesh gently in position well away from the fascial defect. Once these were in place, the mesh was soaked in an antibiotic solution and the left side of the sutures were then pulled up and the mesh pulled up into the abdominal cavity to that extent. Underlying this, then a 12-inch segment of Vicryl mesh was then placed underneath what would be a new area of mesh location, underneath the old mesh in the periumbilical area, and from there down toward the pelvis to limit recurrent adhesion formation between those surfaces and the underlying viscera. The remaining sutures were then pulled up and then tied. The mesh was further secured circumferentially with tacking titanium screws placed on the underlying shelf of the mesh circumferentially. At this point, no further problems were noted. The midline fascia was then approximated with #2 Vicryl stitch. The subcutaneous tissue was approximated with some 3-0 and 4-0 Vicryl stitch deep and braden for the skin. Prior to closure, bilateral transversus abdominis plane blocks were placed and the fascial closure site was then anesthetized with 0.5% Marcaine mixed with lidocaine. The patient was taken to the recovery room in satisfactory condition. There were no evident complications. Physician real estate executive assistant, Liberty Lara, played an essential role in assisting in this case, helping to position the patient, retract structures as needed, as well as suturing and stapling when indicated. Her presence improved patient safety and decreased operative time. Du Portillo MD /[id number]
== END 2020-01-21 09:30 | disposition home health service (06) | DRG 329 ==
LOC: JP.SDS 10:38 → JP.SDSSCHI 10:38 → JP.MS 14:10 → EDSTATUS 17:15
PROVIDERS: ADMIT Surgery; ATTEND Surgery
PROC: 0DS80ZZ Reposition Small Intestine, Open Approach (ICD-10-PCS; principal; 2020-01-18)
PROC: 0WUF0JZ Supplement Abdominal Wall with Synthetic Substitute, Open Approach (ICD-10-PCS; 2020-01-18)
PROC: 0DBJ0ZZ Excision of Appendix, Open Approach (ICD-10-PCS; 2020-01-18)
PROC: 3E0M05Z Introduction of Adhesion Barrier into Peritoneal Cavity, Open Approach (ICD-10-PCS; 2020-01-18)
DX: K43.0 Incisional hernia with obstruction, without gangrene (principal); K56.2 Volvulus; K95.89 Other complications of other bariatric procedure; K91.2 Postsurgical malabsorption, not elsewhere classified; K66.0 Peritoneal adhesions (postprocedural) (postinfection); E53.8 Deficiency of other specified B group vitamins; F32.9 Major depressive disorder, single episode, unspecified; F41.9 Anxiety disorder, unspecified; E55.9 Vitamin D deficiency, unspecified; I10 Essential (primary) hypertension; F90.0 Attention-deficit hyperactivity disorder, predominantly inattentive type; E11.21 Type 2 diabetes mellitus with diabetic nephropathy; E61.1 Iron deficiency; G47.33 Obstructive sleep apnea (adult) (pediatric); M17.0 Bilateral primary osteoarthritis of knee; M10.9 Gout, unspecified; E78.5 Hyperlipidemia, unspecified; D64.9 Anemia, unspecified; Z87.891 Personal history of nicotine dependence
CPT/HCPCS: 36415; 82607; 82728; 82746; 82962; 83735; 84100; 88302; 88305; 94762; A9270-GY; C1713; C1781; J0171; J0690; J1100; J1170; J1815; J1885; J2020; J2185; J2405; J2704; J2710; J2795; J3010; J3490; J7050; J7120; J7121

== ENCOUNTER 2023-05-14 14:52 | Inpatient (IN) | payer MEDICAID, MEDICARE ==
[2023-05-14] MEDS ORDERED: Ondansetron 4 MG/2 ML SDV IVPUSH PRN (15:36)
[2023-05-14] MEDS ORDERED: Acetaminophen 325 MG Tab PO PRN (15:37)
[2023-05-14] MEDS ORDERED: Acetaminophen 650 MG Supp RECTAL PRN (15:38)
[2023-05-14] MEDS: Pantoprazole 40 MG Vial IV SCH (16:31)
[2023-05-14] MEDS: Dextrose 5%-Lactated Ringers 1,000 ML IV SCH (16:31)
[2023-05-14] MEDS ORDERED: buPROPion 150 MG Tab.ER PO SCH (18:00)
[2023-05-14] MEDS: Ziprasidone HCl 20 MG Cap PO SCH (18:07)
[2023-05-14] MEDS ORDERED: hydrOXYzine HCl 10 MG Tab PO PRN (18:16)
[2023-05-14] MEDS: HYDROmorphone 0.5 MG/0.5 ML Syringe IVPUSH PRN ×2 (19:56→22:32)
[2023-05-14] MEDS ORDERED: ZIPRASIDONE HCL 60 MG PO SCH (21:00)
[2023-05-14] MEDS: LORazepam 0.5 MG Tab PO PRN (22:32)
[2023-05-15] MEDS: Dextrose 5%-Lactated Ringers 1,000 ML IV SCH ×3 (00:29→22:56)
[2023-05-15] MEDS: HYDROmorphone 0.5 MG/0.5 ML Syringe IVPUSH PRN ×2 (04:06→07:04)
[2023-05-15 04:20] LABS: BASOPHILS ABSOLUTE AUTO 0.05 K/uL (0.00-0.10); BASOPHILS PERCENT AUTO 0.8 % (0.1-1.3); EOSINOPHILS ABSOLUTE AUTO 0.09 K/uL (0.00-0.40); EOSINOPHILS PERCENT AUTO 1.5 % (0.0-5.4); HEMATOCRIT 34.4 % (34.3-46.0); HEMOGLOBIN 11.5 g/dL (11.2-15.5); IMMATURE GRAN PERCENT AUTO 0.2 % (0.0-0.7); LYMPHOCYTES PERCENT AUTO 35.1 % (11.4-47.7); MEAN CORPUSCULAR HEMOGLOBIN 35.7 pg (31.6-35.5); MEAN CORPUSCULAR HGB CONC 33.4 g/dL (31.6-35.5); MEAN CORPUSCULAR VOLUME 106.8 fL (81.4-99.0); MONOCYTES ABSOLUTE AUTO 0.65 K/uL (0.20-0.90); MONOCYTES PERCENT AUTO 10.9 % (3.3-12.6); NEUTROPHILS ABSOLUTE AUTO 3.09 K/uL (1.0-7.6); NEUTROPHILS PERCENT AUTO 51.5 % (40.0-78.1); PLATELET COUNT,PLT 182 K/uL (130-375); RED BLOOD CELL COUNT 3.22 M/uL (3.77-5.24)
[2023-05-15 04:42] LABS: ALANINE AMINOTRANSFERASE,ALT 16 U/L (12-78); ALBUMIN 2.7 g/dL (3.4-5.0); ALKALINE PHOSPHATASE 91 U/L (46-116); ASPARTATE AMNIOTRANSFERASE,AST 15 U/L (15-37); BILIRUBIN TOTAL 0.4 mg/dL (0.2-1.0); BLOOD UREA NITROGEN,BUN 4 mg/dL (7-18); CARBON DIOXIDE,CO2 29 mmol/L (21-32); CHLORIDE,CL 106 mmol/L (100-108); CREATININE 0.6 mg/dL (0.6-1.0); EST CRCL DRUG DOSING (CG) 82.48 mL/min; ESTIMATED GFR 103 mL/min (>60); GLUCOSE RANDOM 186 mg/dL (74-106); MAGNESIUM 1.5 mg/dL (1.8-2.4); PHOSPHORUS 3.8 mg/dL (2.5-4.9); POTASSIUM,K 3.4 mmol/L (3.6-5.2); PROTEIN TOTAL,TP 5.5 g/dL (6.4-8.2); SODIUM,NA 140 mmol/L (140-148)
[2023-05-15 04:54] LABS: IMMATURE GRAN ABSOLUTE AUTO 0.01 K/uL (0.00-0.23)
[2023-05-15 05:00] LABS: ANION GAP 8.4 mmol/L (5.0-14.0)
[2023-05-15] MEDS ORDERED: Potassium Chloride 10 MEQ in Premix Bag 1 BAG IV ONE ×2 (06:36→08:00)
[2023-05-15] MEDS ORDERED: Magnesium Sulfate/Water 2 GM in Premix Bag 1 BAG IV ONE ×2 (06:36→09:00)
[2023-05-15] MEDS ORDERED: MVI, Adult with Vitamin K 10 ML in Sodium Chloride 0.9% 1,000 ML IV ONE ×2 (06:38)
[2023-05-15] MEDS ORDERED: Thiamine 100 MG in Sodium Chloride 0.9% 100 ML IV SCH (06:45)
[2023-05-15] MEDS ORDERED: Folic Acid 50 MG/10 ML MDV IV SCH (06:45)
[2023-05-15] MEDS ORDERED: Midazolam 1 MG/ML 2 ML SDV ONE ×2 (07:14→07:34)
[2023-05-15] MEDS ORDERED: Propofol 200 MG/20 ML SDV ONE ×2 (07:14→07:34)
[2023-05-15] MEDS ORDERED: fentaNYL 100 MCG/2 ML SDV ONE (07:14)
[2023-05-15] MEDS ORDERED: fentaNYL 50 MCG/ML SDV ONE (07:34)
[2023-05-15] MEDS ORDERED: MVI, Adult with Vitamin K 10 ML, Thiamine 100 MG, Folic Acid 1 MG in Sodium Chloride 0.... IV ONE ×4 (08:30)
[2023-05-15] MEDS ORDERED: Aspirin 81 MG Tab.EC PO SCH (09:00)
[2023-05-15] MEDS: Amphetamine/Dextroamphetamine Salts 10 MG Tab PO SCH ×2 (10:26→13:15)
[2023-05-15] MEDS: Allopurinol 100 MG Tab PO SCH (10:30)
[2023-05-15] MEDS: Ziprasidone HCl 20 MG Cap PO SCH (10:34)
[2023-05-15] MEDS: valACYclovir 1,000 MG Tab PO SCH (10:36)
[2023-05-15] MEDS: Enoxaparin 40 MG/0.4 ML Syringe SUBCUT SCH (10:40)
[2023-05-15] MEDS: Pantoprazole 40 MG Vial IV SCH (16:28)
[2023-05-15] MEDS: LORazepam 0.5 MG Tab PO PRN (21:43)
[2023-05-16] MEDS ORDERED: Thiamine 100 MG in Sodium Chloride 0.9% 100 ML IV SCH (09:00)
[2023-05-16] MEDS ORDERED: Folic Acid 50 MG/10 ML MDV IV SCH (09:00)
[2023-05-16] MEDS ORDERED: Folic Acid 1 MG Tab PO SCH (09:00)
[2023-05-16] MEDS: Ziprasidone HCl 20 MG Cap PO SCH (11:05)
[2023-05-16] MEDS: Allopurinol 100 MG Tab PO SCH (11:08)
[2023-05-16] MEDS: valACYclovir 1,000 MG Tab PO SCH (11:10)
[2023-05-16] MEDS: Amphetamine/Dextroamphetamine Salts 10 MG Tab PO SCH ×2 (11:11→15:25)
[2023-05-16] MEDS: Enoxaparin 40 MG/0.4 ML Syringe SUBCUT SCH (11:11)
[2023-05-16] MEDS ORDERED: Pantoprazole 40 MG Tab.CR PO SCH (16:30)
[2023-05-17] MEDS ORDERED: Thiamine 100 MG Tab PO SCH (09:00)
== END 2023-05-16 16:15 | disposition home or self-care (01) | DRG 394 ==
LOC: JP.MS 14:52
PROVIDERS: ADMIT Surgery; ATTEND Student in an Organized Health Care Education/Training Program
DX: T18.128A Food in esophagus causing other injury, initial encounter (principal); K56.1 Intussusception; I45.10 Unspecified right bundle-branch block; W44.F3XA Food entering into or through a natural orifice, initial encounter; I34.0 Nonrheumatic mitral (valve) insufficiency; F90.9 Attention-deficit hyperactivity disorder, unspecified type; F41.9 Anxiety disorder, unspecified; F60.3 Borderline personality disorder; F12.10 Cannabis abuse, uncomplicated; M19.90 Unspecified osteoarthritis, unspecified site; Z20.822 Contact with and (suspected) exposure to COVID-19; I10 Essential (primary) hypertension; D50.9 Iron deficiency anemia, unspecified; G47.33 Obstructive sleep apnea (adult) (pediatric); E11.42 Type 2 diabetes mellitus with diabetic polyneuropathy; G47.30 Sleep apnea, unspecified; F32.A Depression, unspecified; E66.9 Obesity, unspecified; G47.00 Insomnia, unspecified; Z98.49 Cataract extraction status, unspecified eye; Z79.82 Long term (current) use of aspirin; Z79.899 Other long term (current) drug therapy; Z87.891 Personal history of nicotine dependence; Z98.84 Bariatric surgery status; Z98.890 Other specified postprocedural states; Z90.49 Acquired absence of other specified parts of digestive tract; Z68.28 Body mass index [BMI] 28.0-28.9, adult
CPT/HCPCS: 36415; 78452; 78452-26; 80053; 83735; 84100; 85025; 93005; 93017; 93306; A9270-GY; A9500; C9113; J1170; J1650; J2250; J2405; J2704; J3010; J3411; J3475; J3480; J3490; J7030; J7121; U0002